=== PATIENT | male | born 1950 | race Caucasian/White ===

== ENCOUNTER 2023-10-02 06:59 | Outpatient (CLI) | payer MEDICARE, OTHER ==
--- NOTE | 2023-10-02 19:33 | MRI Report ---
PROCEDURE: Lumbar Spine WO INDICATIONS: SPINAL STENOSIS TECHNIQUE: Noncontrast sagittal T1 spin echo and T2 fast echo, sagittal STIR, axial T1 and T2 fast spin echo thr ough the lumbar spine. In cases with scoliosis, additional coronal T2 fast spin echo may be performe d. COMPARISON: None. FINDINGS: Image quality: Excellent. Alignment and Curvature: There is normal bony alignment. Bone Marrow: Marrow is of normal overall signal. No acute vertebral body compression fractures. Mil d chronic anterior wedging of T12. Spinal Cord: Conus medullaris terminates at the L1-L2 level. Visualized cord demonstrates normal si gnal and size. Paraspinous Soft Tissues: No paravertebral masses. Small T2 hyperintensities within the right kidney , likely simple cysts. T12-L1: Disc desiccation. No central canal or neuroforaminal stenosis. L1-L2: Disc desiccation and mild disc bulge. No central canal or neuroforaminal stenosis. L2-L3: Disc desiccation and mild disc bulge. Facet arthropathy. Mild central canal stenosis. Mild bilateral neuroforaminal stenosis. L3-L4: Disc desiccation and mild diffuse disc bulge. Facet arthropathy. Mild central canal stenosis . No significant neural foraminal stenosis. L4-L5: Disc desiccation and mild diffuse disc bulge. Facet arthropathy and thickening of ligamenta flava. Mild central canal stenosis. Mild right and no left neuroforaminal stenosis. L5-S1: Disc desiccation and mild disc bulge with small superimposed central disc protrusion. Facet arthropathy. No central canal stenosis. Mild bilateral neuroforaminal stenosis. IMPRESSION: Mild multilevel degenerative changes of the lumbar spine as described above. No high-grade central ca nal or neuroforaminal stenosis. Reviewed by: Domingo Erazo MD on 10/02/2023 7:32 PM PDT Approved by: Domingo Erazo MD on 10/02/2023 7:32 PM PDT Station ID: [id number]
== END 2023-10-02 07:00 | disposition home or self-care (01) ==
LOC: DI 06:59
PROVIDERS: ATTEND Family Medicine
DX: M51.36 Other intervertebral disc degeneration, lumbar region (principal); M48.061 Spinal stenosis, lumbar region without neurogenic claudication; M47.816 Spondylosis without myelopathy or radiculopathy, lumbar region; M51.27 Other intervertebral disc displacement, lumbosacral region; M51.37 Other intervertebral disc degeneration, lumbosacral region; M48.07 Spinal stenosis, lumbosacral region; M47.817 Spondylosis without myelopathy or radiculopathy, lumbosacral region